=== PATIENT | male | born 1925 | race Caucasian/White ===

== ENCOUNTER 2016-06-14 10:49 | Inpatient (IN) | payer OTHER ==
[2016-06-14] VITALS (36 sets, daily range): BP systolic 82–146; BP diastolic 41–71
[~2016-06-14] VITALS: Ht 182.9 cm; Wt 76.3 kg
[2016-06-14] MEDS ORDERED: MIDAZOLAM DRIP 100 mg/100mL NS 100 ML IV ONE (11:02)
[2016-06-14] MEDS ORDERED: AMIODARONE HCL 150 MG in D5W 5% 100 ML IV ONE (11:15)
[2016-06-14] MEDS ORDERED: CLINDAMYCIN 900MG IV 50 ML IV ONE (11:15)
[2016-06-14] MEDS ORDERED: MIDAZOLAM DRIP 100 mg/100mL NS 100 ML IV SCH (11:15)
[2016-06-14] MEDS ORDERED: PIPERACILLIN-TAZOB 3.375GM 100 ML IV ONE (11:15)
[2016-06-14] MEDS ORDERED: ONDANSETRON HCL 4 MG/2 ML VIAL IV ONE (11:15)
[2016-06-14] MEDS ORDERED: AMIODARONE HCL 900 MG in DEXTROSE 500 ML IV SCH ×3 (11:16→17:16)
[2016-06-14 11:32] LABS: Basophils # (auto) 0.1 uL; Basophils % (auto) 0.5 % (0.0-2.0); DEFINITIVE VIEW TRANSMISSION; Eosinophils # (auto) 0.3 uL; Hematocrit 32.7 % (41.0-53.0); Hemoglobin 10.7 g/dL (13.5-17.5); Lymphocytes # (auto) 4.7 uL; Lymphocytes % (auto) 42.8 % (10.0-50.0); Mean Corpuscular Hemoglobin 33.2 pg (28.0-32.0); Mean Corpuscular Hgb Conc. 32.6 g/dL (32.0-36.0); Mean Corpuscular Volume 101.8 fL (80.0-100.0); Mean Platelet Volume 9.4 fL (7.4-10.4); Monocytes # (auto) 0.8 uL; Monocytes % (auto) 7.6 % (0.0-12.0); Neutrophils # (auto) 5.1 uL; Neutrophils % (auto) 46.1 % (37.0-80.0); Platelet Count (auto) 210 10^3/uL (140-450); Red Cell Distribution Width 14.9 % (11.6-16.0)
[2016-06-14] MEDS: MORPHINE SULFATE 4 MG/ML SYRG IV ONE ×2 (11:39→11:42)
[2016-06-14 11:42] LABS: Partial Thromboplastin Time 53.6 sec (22.64-33.71)
[2016-06-14] MEDS ORDERED: NOREPINEPHRINE BITARTRATE 250 ML IV ONE (11:49)
[2016-06-14 11:51] LABS: INR 1.22 (0.9-1.15); Prothrombin Time 12.6 sec (9.37-12.3)
[2016-06-14] MEDS ORDERED: NOREPINEPHRINE BITARTRATE 250 ML IV SCH (12:00)
[2016-06-14 12:02] LABS: Albumin 3.2 g/dL (3.4-5.0); BUN/Creatinine Ratio 7.1; Bilirubin, Total 0.4 mg/dL (0.2-1.0); Calcium 8.1 mg/dL (8.5-10.1); Potassium 4.2 mmol/L (3.5-5.1); Total Protein 6.3 g/dL (6.4-8.2)
[2016-06-14 12:03] LABS: Lactic Acid 13.7 mmol/L (0.4-2.0)
[2016-06-14 12:07] LABS: REFLEX LACTIC ACID YES OR NO YES
[2016-06-14] MEDS ORDERED: cefTRIAXone 1GM/50ML D5W 50 ML IV ONE (13:45)
[2016-06-14] MEDS ORDERED: SODIUM BICARBONATE 8.4 % INJ 50ML VIAL IV ONE (13:45)
[2016-06-14] MEDS ORDERED: MAGNESIUM SULFATE 1GM/100ML 100 ML IV ONE (13:45)
[2016-06-14] MEDS: CLINDAMYCIN 300MG IV 50 ML IV SCH ×2 (14:00→21:54)
[2016-06-14] MEDS ORDERED: ONDANSETRON HCL 4 MG/2 ML VIAL IV PRN (14:00)
[2016-06-14] MEDS ORDERED: DEXTROSE (50%) 50ML SYRG IV PRN (14:00)
[2016-06-14] MEDS ORDERED: MORPHINE SULF INJ 2 MG/ML SYRINGE 1ML IV PRN ×2 (14:00)
[2016-06-14] MEDS ORDERED: NITROGLYCERIN 0.4 MG SL TAB SL PRN (14:00)
[2016-06-14] MEDS ORDERED: FAMOTIDINE (10MG/ML) 2ML VL IV ONE (14:00)
[2016-06-14] MEDS: SODIUM CHLORIDE 0.9% 1,000 ML IV SCH (14:02)
[2016-06-14 14:20] LABS: Lactic Acid 6.7 mmol/L (0.4-2.0)
[2016-06-14 14:22] LABS: REFLEX LACTIC ACID YES OR NO NO
[2016-06-14] MEDS: ENOXAPARIN SOD 30 MG/0.3 ML SYRINGE SC SCH (15:12)
[2016-06-14 16:33] LABS: Lactic Acid 4.8 mmol/L (0.4-2.0)
[2016-06-14 16:38] LABS: REFLEX LACTIC ACID YES OR NO NO
[2016-06-14 17:23] LABS: BUN/Creatinine Ratio 6.7; Calcium 8.8 mg/dL (8.5-10.1)
[2016-06-14] MEDS: ACCU-CHEK COMFORT CURVE STRIP VI SCH ×2 (18:11→23:35)
[2016-06-14] MEDS: cefTRIAXone 1GM/50ML D5W 50 ML IV SCH (18:11)
[2016-06-14] MEDS: InsuLIN REG 1unit/0.01ml Soln (100units/ml) SC SCH ×2 (18:18→23:36)
[2016-06-14] MEDS: MIDAZOLAM DRIP 100 mg/100mL NS 100 ML IV SCH (19:59)
[2016-06-14] MEDS: PROPOFOL 100 ML IV SCH (19:59)
[2016-06-14] MEDS: NOREPINEPHRINE BITARTRATE 250 ML IV SCH (20:00)
[2016-06-14] MEDS ORDERED: FAMOTIDINE (10MG/ML) 2ML VL IV SCH (22:00)
[2016-06-14 22:37] LABS: Urine Bilirubin Negative (Negative); Urine Color Yellow (Yellow); Urine Ketone Negative (Negative); Urine Mucus FEW (None Seen); Urine Nitrite Negative (Negative); Urine RBC 5 /hpf (0 - 3); Urine Squamous Epithelial Cell FEW /hpf (<5); Urine Urobilinogen Normal (Negative); Urine pH 6.5 (5.0-8.0)
[2016-06-14 22:38] LABS: Urine Blood 2+ /uL (Negative); Urine Glucose 3+ mg/dL (Normal)
[2016-06-15] VITALS (93 sets, daily range): BP systolic 79–144; BP diastolic 30–97
[2016-06-15] MEDS: MIDAZOLAM DRIP 100 mg/100mL NS 100 ML IV SCH ×2 (03:21→20:00)
[2016-06-15 03:44] LABS: Basophils # (auto) 0 uL; Basophils % (auto) 0.2 % (0.0-2.0); Eosinophils # (auto) 0 uL; Eosinophils % (auto) 0.1 % (0.0-7.0); Hematocrit 34.9 % (41.0-53.0); Hemoglobin 11.6 g/dL (13.5-17.5); Lymphocytes # (auto) 1.5 uL; Lymphocytes % (auto) 10.9 % (10.0-50.0); Mean Corpuscular Hemoglobin 33.3 pg (28.0-32.0); Mean Corpuscular Hgb Conc. 33.2 g/dL (32.0-36.0); Mean Corpuscular Volume 100.3 fL (80.0-100.0); Mean Platelet Volume 9.3 fL (7.4-10.4); Monocytes # (auto) 1.1 uL; Monocytes % (auto) 8.1 % (0.0-12.0); Neutrophils # (auto) 11.4 uL; Neutrophils % (auto) 80.7 % (37.0-80.0); Platelet Count (auto) 230 10^3/uL (140-450); Red Cell Distribution Width 14.8 % (11.6-16.0); White Blood Cell 14.2 10^3/uL (4.4-10.8)
[2016-06-15 03:58] LABS: Potassium 5.2 mmol/L (3.5-5.1)
[2016-06-15 04:01] LABS: BUN/Creatinine Ratio 6.7
[2016-06-15 04:04] LABS: Bilirubin, Total 0.8 mg/dL (0.2-1.0); Total Protein 6.5 g/dL (6.4-8.2)
[2016-06-15] MEDS: CLINDAMYCIN 300MG IV 50 ML IV SCH ×3 (05:45→21:23)
[2016-06-15] MEDS: ACCU-CHEK COMFORT CURVE STRIP VI SCH ×3 (05:46→17:49)
[2016-06-15] MEDS: InsuLIN REG 1unit/0.01ml Soln (100units/ml) SC SCH ×3 (05:47→17:55)
[2016-06-15] MEDS ORDERED: IOHEXOL 350 MG/ML 100ML IJ ONE (08:03)
[2016-06-15] MEDS: SODIUM CHLORIDE 0.9% 1,000 ML IV SCH ×2 (09:51→23:12)
[2016-06-15] MEDS: cefTRIAXone 1GM/50ML D5W 50 ML IV SCH (09:51)
[2016-06-15] MEDS: ENOXAPARIN SOD 30 MG/0.3 ML SYRINGE SC SCH (09:51)
[2016-06-15] MEDS: FAMOTIDINE (10MG/ML) 2ML VL IV SCH (09:51)
[2016-06-15] MEDS ORDERED: ENOXAPARIN SOD 40 MG/0.4 ML SYRINGE SC SCH (10:00)
[2016-06-15] MEDS ORDERED: SODIUM CHL 0.9% 1000 ML BAG XX ONE (10:30)
[2016-06-15 11:47] LABS: B-Type Natriuretic Peptide 2818.5 pg/mL (0-100); Temperature: 22.7 C (20.0-25.0)
[2016-06-15] MEDS: NOREPINEPHRINE BITARTRATE 250 ML IV SCH ×2 (13:45→20:00)
[2016-06-15] MEDS ORDERED: HEPARIN SODIUM (PORCINE) 5000 UNITS/ML 1ML VIAL IV ONE (13:45)
[2016-06-15] MEDS ORDERED: LIDOCAINE 50MG/5ML INJ 5ML SYRINGE IV ONE (14:00)
[2016-06-15 14:12] LABS: Basophils # (auto) 0.1 uL; Basophils % (auto) 0.8 % (0.0-2.0); Eosinophils # (auto) 0 uL; Eosinophils % (auto) 0.2 % (0.0-7.0); Hemoglobin 11.6 g/dL (13.5-17.5); Lymphocytes # (auto) 1.6 uL; Lymphocytes % (auto) 14.1 % (10.0-50.0); Mean Corpuscular Hemoglobin 32.4 pg (28.0-32.0); Mean Corpuscular Hgb Conc. 33.1 g/dL (32.0-36.0); Mean Corpuscular Volume 97.8 fL (80.0-100.0); Mean Platelet Volume 9.1 fL (7.4-10.4); Monocytes # (auto) 0.7 uL; Monocytes % (auto) 6.3 % (0.0-12.0); Neutrophils # (auto) 9.1 uL; Neutrophils % (auto) 78.6 % (37.0-80.0); Platelet Count (auto) 193 10^3/uL (140-450); Red Cell Distribution Width 14.9 % (11.6-16.0); White Blood Cell 11.6 10^3/uL (4.4-10.8)
[2016-06-15 14:26] LABS: Partial Thromboplastin Time 32.4 sec (22.64-33.71)
[2016-06-15 14:34] LABS: INR 1.25 (0.9-1.15); Prothrombin Time 12.9 sec (9.37-12.3)
[2016-06-15] MEDS: LIDOCAINE 4MG/ML IV SOLN 500 ML IV SCH (14:50)
[2016-06-15] MEDS ORDERED: LIDOCAINE-2% MPF SDV 5 ML IJ ONE (15:15)
[2016-06-15] MEDS ORDERED: LIDOCAINE HCL 100 MG/5ML (2%) SYRG INJ IV ONE (15:30)
[2016-06-15] MEDS: HEPARIN DRIP/D5W 100UNITS/ML 250 ML IV SCH (15:30)
[2016-06-15] MEDS: ASPirin-EC 325mg tab PO SCH (18:30)
[2016-06-15] MEDS: fentaNYL Drip 2500mCg/250mlNS 250 ML IV SCH ×2 (19:12→20:00)
[2016-06-15] MEDS: PROPOFOL 100 ML IV SCH (20:27)
[2016-06-15] MEDS: ATORVASTATIN 20 MG TAB PO SCH (21:23)
[2016-06-15 22:12] LABS: Partial Thromboplastin Time 54.7 sec (22.64-33.71)
[2016-06-15 22:13] LABS: BUN/Creatinine Ratio 5.9; Calcium 8.1 mg/dL (8.5-10.1); INR 1.3 (0.9-1.15); Magnesium 2.4 mg/dL (1.6-2.6); Potassium 4.2 mmol/L (3.5-5.1); Prothrombin Time 13.4 sec (9.37-12.3)
[2016-06-16] VITALS (98 sets, daily range): BP systolic 90–143; BP diastolic 42–75
[2016-06-16 03:55] LABS: Basophils # (auto) 0 uL; Basophils % (auto) 0.3 % (0.0-2.0); Eosinophils # (auto) 0.1 uL; Eosinophils % (auto) 1.2 % (0.0-7.0); Hemoglobin 11.1 g/dL (13.5-17.5); Lymphocytes # (auto) 1.8 uL; Lymphocytes % (auto) 14.9 % (10.0-50.0); Mean Corpuscular Hemoglobin 32.9 pg (28.0-32.0); Mean Corpuscular Hgb Conc. 33.6 g/dL (32.0-36.0); Mean Corpuscular Volume 97.9 fL (80.0-100.0); Mean Platelet Volume 9.7 fL (7.4-10.4); Monocytes % (auto) 8.3 % (0.0-12.0); Neutrophils # (auto) 8.9 uL; Neutrophils % (auto) 75.3 % (37.0-80.0); Platelet Count (auto) 152 10^3/uL (140-450); Red Cell Distribution Width 15.1 % (11.6-16.0); White Blood Cell 11.9 10^3/uL (4.4-10.8)
[2016-06-16 04:11] LABS: Partial Thromboplastin Time 55.5 sec (22.64-33.71)
[2016-06-16 04:33] LABS: Albumin 2.5 g/dL (3.4-5.0); BUN/Creatinine Ratio 5.6; Bilirubin, Total 0.5 mg/dL (0.2-1.0); Calcium 7.9 mg/dL (8.5-10.1); Magnesium 2.3 mg/dL (1.6-2.6); Phosphorus 4.2 mg/dL (2.5-4.90); Potassium 4.4 mmol/L (3.5-5.1); Total Protein 5.9 g/dL (6.4-8.2)
[2016-06-16 04:40] LABS: INR 1.35 (0.9-1.15); Prothrombin Time 13.9 sec (9.37-12.3)
[2016-06-16] MEDS: CLINDAMYCIN 300MG IV 50 ML IV SCH ×3 (05:42→21:39)
[2016-06-16] MEDS: ACCU-CHEK COMFORT CURVE STRIP VI SCH ×5 (05:42→23:44)
[2016-06-16] MEDS: InsuLIN REG 1unit/0.01ml Soln (100units/ml) SC SCH ×5 (05:42→23:45)
[2016-06-16] MEDS: LIDOCAINE 4MG/ML IV SOLN 500 ML IV SCH ×2 (06:40→23:20)
[2016-06-16] MEDS: fentaNYL Drip 2500mCg/250mlNS 250 ML IV SCH (09:49)
[2016-06-16] MEDS: cefTRIAXone 1GM/50ML D5W 50 ML IV SCH (10:09)
[2016-06-16] MEDS: ASPirin-EC 325mg tab PO SCH (10:10)
[2016-06-16] MEDS: FAMOTIDINE (10MG/ML) 2ML VL IV SCH (10:10)
[2016-06-16 10:48] LABS: Partial Thromboplastin Time 55.4 sec (22.64-33.71)
[2016-06-16 10:51] LABS: INR 1.29 (0.9-1.15); Prothrombin Time 13.3 sec (9.37-12.3)
[2016-06-16] MEDS ORDERED: SODIUM CHL 0.9% 1000 ML BAG XX ONE (13:30)
[2016-06-16] MEDS: MIDAZOLAM DRIP 100 mg/100mL NS 100 ML IV SCH (13:33)
[2016-06-16] MEDS: PROPOFOL 100 ML IV SCH (13:33)
[2016-06-16] MEDS: NOREPINEPHRINE BITARTRATE 250 ML IV SCH (13:45)
[2016-06-16] MEDS: HEPARIN DRIP/D5W 100UNITS/ML 250 ML IV SCH (15:18)
[2016-06-16] MEDS: ATORVASTATIN 20 MG TAB PO SCH (21:39)
[2016-06-16] MEDS: SODIUM CHLORIDE 0.9% 1,000 ML IV SCH (21:40)
[2016-06-17] VITALS (99 sets, daily range): BP systolic 108–160; BP diastolic 43–71
[2016-06-17 04:17] LABS: BUN/Creatinine Ratio 6.5; Calcium 7.5 mg/dL (8.5-10.1); Magnesium 2.2 mg/dL (1.6-2.6); Potassium 4.7 mmol/L (3.5-5.1)
[2016-06-17 04:46] LABS: Basophils # (auto) 0 uL; Basophils % (auto) 0.4 % (0.0-2.0); Eosinophils # (auto) 0.1 uL; Eosinophils % (auto) 1.4 % (0.0-7.0); Hematocrit 31.5 % (41.0-53.0); Hemoglobin 10.4 g/dL (13.5-17.5); Lymphocytes % (auto) 10.4 % (10.0-50.0); Mean Corpuscular Hemoglobin 32.8 pg (28.0-32.0); Mean Corpuscular Volume 99.4 fL (80.0-100.0); Monocytes # (auto) 0.7 uL; Monocytes % (auto) 6.9 % (0.0-12.0); Neutrophils # (auto) 7.7 uL; Neutrophils % (auto) 80.9 % (37.0-80.0); Platelet Count (auto) 180 10^3/uL (140-450); Red Cell Distribution Width 15.4 % (11.6-16.0); White Blood Cell 9.5 10^3/uL (4.4-10.8)
[2016-06-17] MEDS: InsuLIN REG 1unit/0.01ml Soln (100units/ml) SC SCH ×3 (05:40→18:00)
[2016-06-17] MEDS: CLINDAMYCIN 300MG IV 50 ML IV SCH ×3 (05:40→22:29)
[2016-06-17] MEDS: ACCU-CHEK COMFORT CURVE STRIP VI SCH ×3 (05:40→18:28)
[2016-06-17] MEDS ORDERED: ALBUMIN 25% 100 ML IV ONE (06:42)
[2016-06-17] MEDS ORDERED: HEPARIN 1,000 UNITS/ml 1ML VIAL ONE (06:44)
[2016-06-17] MEDS: SODIUM CHLORIDE 0.9% 1,000 ML IV SCH (08:32)
[2016-06-17] MEDS: cefTRIAXone 1GM/50ML D5W 50 ML IV SCH (09:21)
[2016-06-17] MEDS: FAMOTIDINE (10MG/ML) 2ML VL IV SCH (09:22)
[2016-06-17] MEDS: ASPirin-EC 325mg tab PO SCH (09:22)
[2016-06-17] MEDS: MIDAZOLAM DRIP 100 mg/100mL NS 100 ML IV SCH (13:33)
[2016-06-17] MEDS: PROPOFOL 100 ML IV SCH (13:33)
[2016-06-17] MEDS: NOREPINEPHRINE BITARTRATE 250 ML IV SCH (13:45)
[2016-06-17 19:06] LABS: Vitamin D 25-Hydroxy 36 ng/mL (.); Vitamin D-2 25-Hydroxy <1.0 ng/mL (.)
[2016-06-17] MEDS: fentaNYL Drip 2500mCg/250mlNS 250 ML IV SCH (19:12)
[2016-06-17] MEDS: ATORVASTATIN 20 MG TAB PO SCH (22:29)
[2016-06-18] VITALS (61 sets, daily range): BP systolic 102–164; BP diastolic 48–97
[2016-06-18] MEDS: InsuLIN REG 1unit/0.01ml Soln (100units/ml) SC SCH ×3 (00:30→11:56)
[2016-06-18] MEDS: SODIUM CHLORIDE 0.9% 1,000 ML IV SCH (01:12)
[2016-06-18 03:50] LABS: Basophils # (auto) 0 uL; Basophils % (auto) 0.7 % (0.0-2.0); Eosinophils # (auto) 0.3 uL; Hematocrit 31.1 % (41.0-53.0); Hemoglobin 9.9 g/dL (13.5-17.5); Lymphocytes # (auto) 1.3 uL; Lymphocytes % (auto) 19.5 % (10.0-50.0); Mean Corpuscular Hemoglobin 32.1 pg (28.0-32.0); Mean Corpuscular Hgb Conc. 31.8 g/dL (32.0-36.0); Mean Platelet Volume 9.8 fL (7.4-10.4); Monocytes # (auto) 0.7 uL; Monocytes % (auto) 10.1 % (0.0-12.0); Neutrophils # (auto) 4.2 uL; Neutrophils % (auto) 64.7 % (37.0-80.0); Platelet Count (auto) 161 10^3/uL (140-450); Red Cell Distribution Width 15.8 % (11.6-16.0); White Blood Cell 6.5 10^3/uL (4.4-10.8)
[2016-06-18 04:09] LABS: BUN/Creatinine Ratio 6.5; Calcium 7.8 mg/dL (8.5-10.1); Magnesium 2.4 mg/dL (1.6-2.6); Potassium 4.3 mmol/L (3.5-5.1)
[2016-06-18] MEDS: CLINDAMYCIN 300MG IV 50 ML IV SCH (05:46)
[2016-06-18] MEDS: ACCU-CHEK COMFORT CURVE STRIP VI SCH ×3 (05:46→11:55)
[2016-06-18] MEDS: cefTRIAXone 1GM/50ML D5W 50 ML IV SCH (09:14)
[2016-06-18] MEDS: ASPirin-EC 325mg tab PO SCH (09:57)
[2016-06-18] MEDS: FAMOTIDINE (10MG/ML) 2ML VL IV SCH (09:57)
[2016-06-18] MEDS ORDERED: CLOPIDOGREL BISULFATE 75 MG TAB PO ONE (11:15)
[2016-06-18] MEDS: PROPOFOL 100 ML IV SCH (13:24)
[2016-06-18] MEDS: NOREPINEPHRINE BITARTRATE 250 ML IV SCH (13:24)
[2016-06-18] MEDS: MIDAZOLAM DRIP 100 mg/100mL NS 100 ML IV SCH (13:24)
[2016-06-19] MEDS ORDERED: CLOPIDOGREL BISULFATE 75 MG TAB PO SCH (10:00)
== END 2016-06-18 14:30 | disposition short-term general hospital (02) | DRG 871 ==
LOC: ER 10:51 → EDBD 10:51 → TELE 10:52 → ICU WEST 16:37
PROVIDERS: ADMIT Internal Medicine; ATTEND Family Medicine
PROC: 5A1945Z Respiratory Ventilation, 24-96 Consecutive Hours (ICD-10-PCS; principal; 2016-06-14)
PROC: 0BH17EZ Insertion of Endotracheal Airway into Trachea, Via Natural or Artificial Opening (ICD-10-PCS; 2016-06-14)
PROC: 5A12012 Performance of Cardiac Output, Single, Manual (ICD-10-PCS; 2016-06-14)
PROC: 5A1D60Z (ICD-10-PCS; 2016-06-14)
DX: A41.9 Sepsis, unspecified organism (principal); I21.4 Non-ST elevation (NSTEMI) myocardial infarction; I46.9 Cardiac arrest, cause unspecified; I49.01 Ventricular fibrillation; J69.0 Pneumonitis due to inhalation of food and vomit; J96.00 Acute respiratory failure, unspecified whether with hypoxia or hypercapnia; N18.6 End stage renal disease; D68.69 Other thrombophilia; E44.0 Moderate protein-calorie malnutrition; I42.9 Cardiomyopathy, unspecified; I47.2 Ventricular tachycardia; I48.92 Unspecified atrial flutter; I13.2 Hypertensive heart and chronic kidney disease with heart failure and with stage 5 chronic kidney disease, or end stage renal disease; Z99.11 Dependence on respirator [ventilator] status; I50.9 Heart failure, unspecified; K59.00 Constipation, unspecified; E87.6 Hypokalemia; D63.8 Anemia in other chronic diseases classified elsewhere; E11.21 Type 2 diabetes mellitus with diabetic nephropathy; E11.22 Type 2 diabetes mellitus with diabetic chronic kidney disease; E11.65 Type 2 diabetes mellitus with hyperglycemia; E83.51 Hypocalcemia; I25.9 Chronic ischemic heart disease, unspecified; I44.0 Atrioventricular block, first degree; I48.91 Unspecified atrial fibrillation; Z99.2 Dependence on renal dialysis; Z82.49 Family history of ischemic heart disease and other diseases of the circulatory system; I25.2 Old myocardial infarction; Z98.890 Other specified postprocedural states; Z68.22 Body mass index [BMI] 22.0-22.9, adult
CPT/HCPCS: 31500; 36415; 36600; 51702; 70450; 71010; 71275; 80048; 80053; 81001; 82306; 82805; 82962; 83036; 83605; 83735; 83880; 83970; 84100; 84484; 85025; 85049; 85610; 85730; 87040; 87070; 87081; 87086; 87088; 87186; 87205; 90935; 92950; 93005; 93306; 94002; 94003; 96365; 96366; 96375; 99291; G0434; J0696; J2405; J2543; J3010; J3490; J7060